=== PATIENT | male | born 1970 | race Hispanic/Latino ===

== ENCOUNTER 2016-11-19 22:52 | Emergency (ER) | payer SELFPAY ==
[2016-11-19] MEDS ORDERED: Albuterol Sulfate 1.25 MG/3 ML NEB ONE (23:10)
[2016-11-19 23:16] LABS: #Basophils 0.1 thou/uL (0.0-0.2); #Eosinphils 0.1 thou/uL (0.0-0.7); #Lymphocytes 2.9 thou/uL (1.20-3.40); #Monocytes 0.5 thou/uL (0.11-0.59); #Neutrophils 3.6 thou/uL (1.40-6.50); %Basophils 1.9 % (0.0-1.0); %Eosinophils 1.9 % (0.0-10.0); %Monocytes 6.3 % (0.0-10.0); Hematocrit 46.4 % (42.0-52.0); Red Blood Cell (RBC) Count 5.31 mill/uL (4.70-6.10); White Blood Cell (WBC) Count 7.2 thou/uL (4.8-10.8)
[2016-11-19 23:28] LABS: ALT (SGPT) 28 U/L (0-55); AST (SGOT) 19 U/L (5-34); Alkaline Phosphatase 110 U/L (40-150); Anion Gap 16 mmol/L (10-20); BUN (Urea Nitrogen) 19 mg/dL (8.9-20.6); Bilirubin, Total 0.9 mg/dL (0.2-1.2); Calc. Creatinine Clearance 0 mL/min (70-130); Carbon Dioxide 18 mmol/L (22-29); Chloride 111 mmol/L (98-107); Estimated GFR-MDRD Greater than 90; Globulin 3.5 g/dL (2.4-3.5); Protein, Total 7.9 g/dL (6.0-8.3)
[2016-11-19 23:29] LABS: Troponin I Less than 0.010 ng/mL (< 0.028)
[2016-11-19] MEDS ORDERED: Ketorolac Tromethamine 30 MG/ML VIAL ONE (23:45)
[2016-11-19] MEDS ORDERED: methylPREDNISolone Sod Succ/PF 125 MG/2 ML VIAL ONE (23:45)
[2016-11-19] MEDS ORDERED: cefTRIAXone\\ROCEPHIN 1 GM VIAL ONE (23:56)
--- NOTE | 2016-11-19 23:58 | RAD ---
PORTABLE CHEST 11/19/16 An AP portable film at 2303 is presented with no prior films available for comparison. The heart is normal in size. There is no vascular congestion, edema or pleural effusion. The right h emidiaphragm is slightly elevated but this could be the patient's normal state. I cannot rule out a little basilar atelectasis, but no major lobar consolidation was seen. IMPRESSION: No definite acute findings. POS: HOME
--- NOTE | 2016-11-20 00:55 | ERRECORD ---
[facility] EMERGENCY RECORD HPI SHORTNESS OF BREATH (FriNov 20, 2016 00:12 JPIP) CHIEF COMPLAINT: Patient presents for evaluation of shortness of breath, Patient presents for evaluation of cough, congestion and sore throat. HISTORIAN: History provided by patient, History provided by patient's spouse, History obtained with the assistance of a acid tester, SACHA Shook. LOCATION: throat is burning. QUALITY: Symptoms described as tightness, Symptoms described as wheezing. TIME COURSE: Sudden onset of symptoms, 3, days ago, Symptoms are worsening, this evening at approx. 1900 he started to wheeze., are constant. ASSOCIATED WITH: Associated with chills, Associated with cough, No associated diarrhea, Associated with fever, subjective, No associated palpitations, Associated with upper respiratory infection, No associated vomiting, Associated with wheezing. EXACERBATED BY: Patient's condition exacerbated by nothing. RELIEVED BY: Patient's condition relieved by nothing. ROS (FriNov 20, 2016 00:13 JPIP) CONSTITUTIONAL: Historian reports chills, reports fever. Subjective fever of felt feverish. ENT: Historian reports dysphagia, denies otalgia, denies otorrhea, reports rhinorrhea, reports sore throat. CARDIOVASCULAR: Historian denies chest pain. RESPIRATORY: Historian reports cough, reports shortness of breath, denies sputum, reports wheezing. GI: Historian denies nausea, denies vomiting. SKIN: Historian denies rash, denies skin changes, denies skin lesions. NEUROLOGIC: Historian denies lethargy, denies mental status changes. NOTES: All systems reviewed, negative except as described above. PAST MEDICAL HISTORY (23:07 MVIL) MEDICAL HISTORY: Notes: H/O HTN. NOT TAKING ANY MEDS. MALE SURGICAL HISTORY: Patient has no surgical history. PSYCHIATRIC HISTORY: Notes: NO PREVIOUS PSYCH HX. SOCIAL HISTORY: Patient denies alcohol use, Patient denies drug use, Patient is a former tobacco user, smoked cigarettes, Patient quit smoking less than 10 years ago, Tobacco history notes: 2 YRS AGO, Lives at home, with family, AND TEENAGE DAUGHTER. KNOWN ALLERGIES PENICILLIN: Reaction: Hives CURRENT MEDICATIONS No recorded medications &a-1R&a+25V*p+0X*[id number]*c152B*c15G*c2P*p-0X&a-25V&a+1RName: Timothy, Devin : M46 MedRec: [id number] AcctNum: [id number] Prepared: FriNov 20, 2016 00:46 by Interface Page [address] [facility] EMERGENCY RECORD VITAL SIGNS (22:55 MVIL) VITAL SIGNS: BP: 141/97, Pulse: 73, Resp: 19, Temp: 97.7 (Axillary), Pain: 0, O2 sat: 97 on 1L Oxygen, Time: 11/19/2016 22:55. PHYSICAL EXAM (FriNov 20, 2016 00:14 JPIP) CONSTITUTIONAL: Vital Signs Reviewed, Patient afebrile, Pulse normal, Blood pressure, hypertensive, Respiratory rate normal, Normal pulse oximetry, Patient appears, uncomfortable, Patient alert and oriented to person, place and time, Nursing notes reviewed. HEAD: Head exam included findings of head atraumatic, normocephalic. EYES: Eye exam included findings of eyelids normal to inspection, Conjunctiva normal, Sclera normal, no periorbital ecchymosis, no periorbital edema, no periorbital erythema. ENT: Pharynx, injected bilaterally, no swelling, symmetrical, Uvula exam normal, midline, no edema, Mouth exam normal, mucous membranes moist. NECK: Neck exam included findings of normal range of motion, Trachea midline, Thyroid normal, Cervical adenopathy, tender, swollen. RESPIRATORY CHEST: Respiratory exam included findings of no respiratory distress, Breath sounds not clear, No wheezing, No rales, No rhonchi, Breath sounds not absent, Breath sounds not diminished, + stridor, it appears to be volitional. CARDIOVASCULAR: Cardiovascular exam included findings of heart rate regular rate and rhythm, Heart sounds normal, no murmurs, no rub. UPPER EXTREMITY: Upper extremity exam included findings of inspection normal, Range of motion normal. NEURO: York coma scale 15, Neuro exam findings include patient oriented to person, place and time, no focal motor deficits. SKIN: Skin exam included findings of skin warm, dry, and normal in color. LYMPHATIC: Lymphatic exam included findings of cervical adenopathy. PSYCHIATRIC: Normal affect. EKG INTERPRETATION (23:37 JPIP) MONITOR STRIP: quality assurance monitor final strip interpreted by Emergency Department Physician, Monitor strip shows normal sinus rhythm, with no ectopics. 12 LEAD EKG INTERPRETATION: 12 lead EKG interpreted by Emergency Department Physician at time of study, 12 lead EKG shows normal sinus rhythm, Rate (beats per minute): 78, with no ectopics, Conduction normal, ST segments normal, T waves, nonspecific T wave changes, Jermyn normal, Clinical impression:, non-specific EKG. MEDICATION ADMINISTRATION SUMMARY &a-1R&a+25V*p+0X*[id number]*c152B*c15G*c2P*p-0X&a-25V&a+1RName: Devin Aguirre : M46 MedRec: [id number] AcctNum: [id number] Prepared: FriNov 20, 2016 00:46 by Interface Page [address] [facility] EMERGENCY RECORD Drug Name: Rocephin injection, Dose Ordered: 1 g, Route: IV Piggy Back, Status: Given, Time: 00:03 11/20/2016, Drug Name: Solu-MEDROL injection, Dose Ordered: 125 mg, Route: IV Push, Status: Given, Time: 23:51 11/19/2016, Drug Name: Toradol injection, Dose Ordered: 30 mg, Route: IV Push, Status: Given, Time: 23:50 11/19/2016, Drug Name: albuterol sulfate inhalation, Dose Ordered: 3 mL, Route: Nebulize, Status: Given, Time: 23:12 11/19/2016, Drug Name: DuoNeb, Dose Ordered: 3 mL, Route: Nebulize, Status: Given, Time: 23:00 11/19/2016, Detailed record available in Medication Service section. DOCTOR NOTES (FriNov 20, 2016 00:29 JPIP) RE-EVALUATION: Routine re-evaluation, after administration of bronchodilator nebulizer treatments, Routine re-evaluation, after administration of IV fluids, The patient's condition has improved, patient is feeling markedly better. TEXT: Discussed findings and treatment plan with patient and spouse with SACHA Shook. Questions answered, precautions given. PROBLEM LIST No recorded problems DIAGNOSIS (FriNov 20, 2016 00:31 JPIP) FINAL: PRIMARY: Acute bronchitis, ADDITIONAL: laryngeal spasm. PRESCRIPTION (FriNov 20, 2016 00:31 JPIP) cephALEXin: CAPSULE (HARD, SOFT, ETC.) : 500 mg : ORAL : Quantity: 1 Unit: tab(s) Route: ORAL Schedule: 3 times a day (after meals) Dispense: 30 May substitute. Refills: No Refills . NOTES: No refills. promethazine-DM: SYRUP : : ORAL : Quantity: 5 Unit: mL Route: ORAL Schedule: every 8 hours PRN Dispense: 120 ml May substitute. Refills: No Refills . NOTES: for cough No refills. DISPOSITION PATIENT: Disposition Type: Discharge, Disposition: *Discharge Home, Condition: Good. (FriNov 20, 2016 00:31 DONNY) Patient left the department. (FriNov 20, 2016 00:41 JENNIFFER) Roth: DONNY=DO Keenan Joseph MVIL=SACHA Hernandez, Bouchra &a-1R&a+25V*p+0X*[id number]*c152B*c15G*c2P*p-0X&a-25V&a+1RName: Devin Aguirre : M46 MedRec: [id number] AcctNum: [id number] Prepared: FriNov 20, 2016 00:46 by Interface Page 3 of 3 pMD MTDD
--- NOTE | 2016-11-20 01:04 | PICIS ---
[facility] EMERGENCY RECORD TRIAGE (FriNov 19, 2016 22:57 MVIL) TRIAGE NOTES: PATIENT STARTED WHEEZING TODAY AND HAS A COUGH X3 DAYS. DENIES ANY FEVER. (FriNov 19, 2016 22:57 MVIL) PATIENT: NAME: Devin Aguirre, AGE: 46, GENDER: male, : [facility] 1970, TIME OF GREET: FriNov 19, 2016 22:53, PREFERRED LANGUAGE: Kyrgyz, ETHNICITY: Not or , ECODE BILLING MAP: [facility], Zip Code: [address], KG WEIGHT: 99.79, HEIGHT/LENGTH: 180.34cm, BMI: 30.68, , , PERSON ID: [id number], PAYMENT: [employer] Self Pay, PCP: LUISA. (FriNov 19, 2016 22:57 MVIL) PHONE: . (23:22) COMPLAINT: DYSPNEA. (FriNov 19, 2016 22:57 MVIL) ADMISSION: URGENCY: 3 Urgent, ADMISSION SOURCE: Home, TRANSPORT: CAR, BED: ER -01. (FriNov 19, 2016 22:57 MVIL) ASSESSMENT: Assessment: C/O DIFFICULTY BREATHING TODAY. PATIENT HAD A RECENT COLD AND PERSISTENT COUGH X 3-4 DAYS ., Symptoms began 11/19/2016 23:05, Symptoms began 1 hour ago. (23:07 MVIL) PAIN: No complaint of pain. (23:07 MVIL) IMMUNIZATIONS: Flu vaccine not up to date, Tetanus not up to date, Pneumococcal vaccine not up to date. (23:07 MVIL) SIRS SCORING: Heart Rate 55-109 (0), Temp range 96.8-101.1 (0), respiratory rate 12-24 (0), Mental Status altered: no (0). (23:07 MVIL) PROVIDERS: TRIAGE NURSE: Bouchra Hernandez RN. (FriNov 19, 2016 22:57 MVIL) VITAL SIGNS: BP 141/97, Pulse 73, Resp 19, Temp 97.7, (Axillary), Pain 0, O2 Sat 97, on 1L Oxygen, Time 11/19/2016 22:55. (22:55 MVIL) KNOWN ALLERGIES PENICILLIN: Reaction: Hives CURRENT MEDICATIONS No recorded medications VITAL SIGNS (22:55 MVIL) VITAL SIGNS: BP: 141/97, Pulse: 73, Resp: 19, Temp: 97.7 (Axillary), Pain: 0, O2 sat: 97 on 1L Oxygen, Time: 11/19/2016 22:55. NURSING ASSESSMENT: RESPIRATORY /CHEST (FriNov 20, 2016 00:14 MVIL) CONSTITUTIONAL: Complex assessment performed, Patient arrives ambulatory, Gait steady, History obtained from patient, Patient appears comfortable, Patient cooperative, Patient alert, Oriented to person, place and time, Skin warm, Skin dry, Skin normal in color, Mucous membranes pink, Mucous membranes moist, Patient is well-groomed, Patient complains of WHEEZING, B/L WHEEZING NOTED UPON ARRIVAL TO ER AND IMMEDIATELY REQUESTED NEB TREATMENT. O2 SAT ON ROOM AIR UPON ER ARRIVAL WAS 89%. PAIN: pressure pain, Pain exacerbated by nothing, Nothing has been tried to alleviate the pain. RESPIRATORY/CHEST: Breath sounds clear, Respiratory assessment &a-1R&a+25V*p+0X*b0919Y*c152B*c15G*c2P*p-0X&a-25V&a+1RName: Devin Aguirre : M46 MedRec: [id number] AcctNum: [id number] Prepared: FriNov 20, 2016 00:53 by Interface Page 1 of 10 pMD [facility] EMERGENCY RECORD findings include respiratory effort easy, Respirations regular, Conversing normally, Neck and chest exam findings include trachea midline, Chest expansion equal, Chest movement symmetrical, Signs of distress, no associated fever. SAFETY: Side rails up, Cart/Stretcher in lowest position, Family at bedside, Call light within reach, Hospital ID band on. NURSING PROCEDURE: DISCHARGE NOTE (FriNov 20, 2016 00:33 MVIL) DISCHARGE: Patient discharged to home, ambulating without assistance, family driving, accompanied by //partner, Summary of Care printed/ provided, Patient requested and was provided an electronic copy of Discharge Instructions, Transition record given to patient, Discharge instructions given to patient, Prescriptions given and instructions on side effects given, Name of prescription(s) given: PROMETHAZINE AND CEPHALEXIN, Medication reconciliation form given, Above person(s) verbalized understanding of discharge instructions and follow-up care, Patient discharged by. BELONGINGS: Belongings and valuables with patient at time of admission include:. NURSING PROCEDURE: IV (23:05 SDIS) IV SITE 1: IV established, to the left antecubital, using an 18 gauge catheter, in one attempt, IV site prepped with CHLOROPREP, Saline lock established, Labs drawn at time of placement, labeled in the presence of the patient and sent to lab. SAFETY: Side rails up, Cart/Stretcher in lowest position, Call light within reach, Hospital ID band on. ORDER DETAILS Order Name: B type Natriuretic Peptide, Status: Active, Time: 22:59 11/19/2016, User: DONNY, - Ordered for: DO Keenan Joseph, - Entered by: DO Keenan Joseph - Tue Nov 19, 2016 22:59, - Quantity: 1, Order Name: PROCESSING INSPECTOR ED, Status: Done, Time: 23:07 11/19/2016, User: JENNIFFER, - Ordered for: DO Keenan Joseph, - Entered by: DO Keenan Joseph - Tue Nov 19, 2016 22:59, - Quantity: 1, Order Name: Cardiac Profile w/CKMB & Troponin - I, Status: Active, Time: 22:59 11/19/2016, User: DONNY, - Ordered for: DO Keenan Joseph, - Entered by: DO Keenan Joseph - Tue Nov 19, 2016 22:59, - Quantity: 1, Order Name: CBC with Differential, Status: Active, Time: 22:59 11/19/2016, User: DONNY, - Ordered for: DO Keenan Joseph, - Entered by: DO Keenan Joseph - Tue Nov 19, 2016 22:59, - Quantity: 1, Order Name: Comprehensive Metabolic Panel, Status: Active, Time: &a-1R&a+25V*p+0X*o0758P*c152B*c15G*c2P*p-0X&a-25V&a+1RName: Devin Aguirre : M46 MedRec: [id number] AcctNum: [id number] Prepared: FriNov 20, 2016 00:53 by Interface Page 2 of 10 pMD [facility] EMERGENCY RECORD 22:59 11/19/2016, User: DONNY, - Ordered for: DO Keenan Joseph, - Entered by: DO Keenan Joseph - rupert Nov 19, 2016 22:59, - Quantity: 1, Order Name: EKG 12 Lead in Emergency Room, Status: Active, Time: 23:21 11/19/2016, User: DONNY, - Ordered for: DO Keenan Joseph, - Entered by: DO Keenan Joseph - rupert Nov 19, 2016 23:21, - Quantity: 1, Order Name: ERRT * Smal Vol Neb Initial Trmt, Status: Active, Time: 22:59 11/19/2016, User: DONNY, - Ordered for: DO Keenan Joseph, - Entered by: DO Keenan Joseph - Tue Nov 19, 2016 22:59, - Quantity: 1, Order Name: ERRT Small Vol Neb Sub Trmt, Status: Active, Time: 23:04 11/19/2016, User: DONNY, - Ordered for: DO Keenan Joseph, - Entered by: DO Keenan Joseph - FriNov 19, 2016 23:04, - Quantity: 1, Order Name: ERRT Pulse Oximeter ER, Status: Active, Time: 22:59 11/19/2016, User: DONNY, - Ordered for: DO Keenan Joseph, - Entered by: DO Keenan Joseph - FriNov 19, 2016 22:59, - Quantity: 1, Order Name: Influenza A&B Ag Screen, Status: Active, Time: 22:59 11/19/2016, User: DONNY, - Ordered for: DO Keenan Joseph, - Entered by: DO Keenan Joseph - FriNov 19, 2016 22:59, - Quantity: 1, Order Name: SALINE LOCK, Status: Done, Time: 23:07 11/19/2016, User: MVIL, - Ordered for: DO Keenan Joseph, - Entered by: DO Keenan Joseph - rupert Nov 19, 2016 22:59, - Quantity: 1, Order Name: XR Chest 1 View Portable, Status: Active, Time: 22:59 11/19/2016, User: DONNY, - Ordered for: DO Keenan Joseph, - Entered by: DO Keenan Joseph - Tue Nov 19, 2016 22:59, - Quantity: 1. MEDICATION ADMINISTRATION SUMMARY Drug Name: Rocephin injection, Dose Ordered: 1 g, Route: IV Piggy Back, Status: Given, Time: 00:03 11/20/2016, Drug Name: Solu-MEDROL injection, Dose Ordered: 125 mg, Route: IV Push, Status: Given, Time: 23:51 11/19/2016, Drug Name: Toradol injection, Dose Ordered: 30 mg, Route: IV Push, Status: Given, Time: 23:50 11/19/2016, Drug Name: albuterol sulfate inhalation, Dose Ordered: 3 mL, Route: Nebulize, Status: Given, Time: 23:12 11/19/2016, Drug Name: DuoNeb, Dose Ordered: 3 mL, Route: Nebulize, Status: &a-1R&a+25V*p+0X*p8083E*c152B*c15G*c2P*p-0X&a-25V&a+1RName: Devin Aguirre : M46 MedRec: [id number] AcctNum: [id number] Prepared: FriNov 20, 2016 00:53 by Interface Page 3 of 10 pMD [facility] EMERGENCY RECORD Given, Time: 23:00 11/19/2016, Detailed record available in Medication Service section. MEDICATION SERVICE albuterol sulfate inhalation: Order: albuterol sulfate inhalation (albuterol sulfate) - Dose: 3 mL : Nebulize Schedule: Now Ordered by: Beau Keenan DO Entered by: Beau Keenan DO FriNov 19, 2016 23:03 Documented as given by: Bouchra Hernandez RN FriNov 19, 2016 23:12 Patient, Medication, Dose, Route and Time verified prior to administration. Verbal order read back and verified, Amount given: 3MLS, Correct patient, time, route, dose and medication confirmed prior to administration, Patient advised of actions and side-effects prior to administration, Allergies confirmed and medications reviewed prior to administration, Patient in position of comfort, Side rails up, Cart in lowest position, Family at bedside. DuoNeb: Order: DuoNeb (ipratropium bromide/albuterol sulfate) - Dose: 3 mL : Nebulize Schedule: Now Ordered by: Beau Keenan DO Entered by: Beau Keenan DO FriNov 19, 2016 23:03 Documented as given by: Bouchra Hernandez RN FriNov 19, 2016 23:00 Patient, Medication, Dose, Route and Time verified prior to administration. Amount given: 3MLS, Correct patient, time, route, dose and medication confirmed prior to administration, Patient advised of actions and side-effects prior to administration, Allergies confirmed and medications reviewed prior to administration, Patient in position of comfort, Side rails up, Cart in lowest position, Family at bedside. Rocephin injection: Order: Rocephin injection (ceftriaxone sodium) - Dose: 1 g : IV Piggy Back Schedule: Now Ordered by: Beau Keenan DO Entered by: Beau Keenan DO FriNov 19, 2016 23:53 Documented as given by: Bouchra Hernandez RN FriNov 20, 2016 00:03 Patient, Medication, Dose, Route and Time verified prior to administration. Amount given: 1G, IV SITE #1 IV fluids established for hydration, via primary tubing, IV SITE #1 on IV pump, Catheter placement confirmed via flush prior to administration, IV site without signs or symptoms of infiltration during medication administration, No swelling during administration, No drainage during administration, IV flushed after administration, Correct patient, time, route, dose and medication confirmed prior to administration, Patient advised of actions and side-effects prior to administration, Allergies confirmed &a-1R&a+25V*p+0X*h0960V*c152B*c15G*c2P*p-0X&a-25V&a+1RName: Devin Aguirre : M46 MedRec: [id number] AcctNum: [id number] Prepared: FriNov 20, 2016 00:53 by Interface Page 4 of 10 pMD [facility] EMERGENCY RECORD and medications reviewed prior to administration, Patient in position of comfort, Side rails up, Cart in lowest position, Family at bedside. : Follow Up : Response assessment performed, No signs or symptoms of allergic reaction noted, Decreased symptoms, 4, 5, 6, The GCS total is 15, Breath sounds improved, _IV SITE #1:_, Medication infusion discontinued, on FriNov 20, 2016 00:36, 35 minutes, ., Total amount infused: 1GM, IV Discontinued with catheter intact. (FriNov 20, 2016 00:35 MVIL) Solu-MEDROL injection: Order: Solu-MEDROL injection (methylprednisolone sod succ) - Dose: 125 mg : IV Push Ordered by: Beau Keenan DO Entered by: Beau Keenan DO FriNov 19, 2016 23:40 Documented as given by: Bouchra Hernandez RN FriNov 19, 2016 23:51 Patient, Medication, Dose, Route and Time verified prior to administration. Amount given: 125MG, IV SITE #1 IVP, initial medication, Catheter placement confirmed via flush prior to administration, IV site without signs or symptoms of infiltration during medication administration, No swelling during administration, No drainage during administration, IV flushed after administration, Correct patient, time, route, dose and medication confirmed prior to administration, Patient advised of actions and side-effects prior to administration, Allergies confirmed and medications reviewed prior to administration, Patient in position of comfort, Side rails up, Cart in lowest position, Family at bedside. Toradol injection: Order: Toradol injection (ketorolac tromethamine) - Dose: 30 mg : IV Push Schedule: Now Ordered by: Beau Keenan DO Entered by: Beau Keenan DO FriNov 19, 2016 23:40 Documented as given by: Bouchra Hernandez RN FriNov 19, 2016 23:50 Patient, Medication, Dose, Route and Time verified prior to administration. Amount given: 30MG, IV SITE #1 IVP, initial medication, Catheter placement confirmed via flush prior to administration, IV site without signs or symptoms of infiltration during medication administration, No swelling during administration, No drainage during administration, IV flushed after administration, Correct patient, time, route, dose and medication confirmed prior to administration, Patient advised of actions and side-effects prior to administration, Allergies confirmed and medications reviewed prior to administration, Patient in position of comfort, Side rails up, Cart in lowest position, Family at bedside. HPI SHORTNESS OF BREATH (FriNov 20, 2016 00:12 JPIP) CHIEF COMPLAINT: Patient presents for evaluation of shortness of breath, Patient presents for evaluation of &a-1R&a+25V*p+0X*l7095J*c152B*c15G*c2P*p-0X&a-25V&a+1RName: Devin Aguirre : M46 MedRec: [id number] AcctNum: [id number] Prepared: FriNov 20, 2016 00:53 by Interface Page 5 of 10 pMD [facility] EMERGENCY RECORD cough, congestion and sore throat. HISTORIAN: History provided by patient, History provided by patient's spouse, History obtained with the assistance of a environmental lawyer, SACHA Shook. LOCATION: throat is burning. QUALITY: Symptoms described as tightness, Symptoms described as wheezing. TIME COURSE: Sudden onset of symptoms, 3, days ago, Symptoms are worsening, this evening at approx. 1900 he started to wheeze., are constant. ASSOCIATED WITH: Associated with chills, Associated with cough, No associated diarrhea, Associated with fever, subjective, No associated palpitations, Associated with upper respiratory infection, No associated vomiting, Associated with wheezing. EXACERBATED BY: Patient's condition exacerbated by nothing. RELIEVED BY: Patient's condition relieved by nothing. ROS (FriNov 20, 2016 00:13 JPIP) CONSTITUTIONAL: Historian reports chills, reports fever. Subjective fever of felt feverish. ENT: Historian reports dysphagia, denies otalgia, denies otorrhea, reports rhinorrhea, reports sore throat. CARDIOVASCULAR: Historian denies chest pain. RESPIRATORY: Historian reports cough, reports shortness of breath, denies sputum, reports wheezing. GI: Historian denies nausea, denies vomiting. SKIN: Historian denies rash, denies skin changes, denies skin lesions. NEUROLOGIC: Historian denies lethargy, denies mental status changes. NOTES: All systems reviewed, negative except as described above. PAST MEDICAL HISTORY (23:07 MVIL) MEDICAL HISTORY: Notes: H/O HTN. NOT TAKING ANY MEDS. MALE SURGICAL HISTORY: Patient has no surgical history. PSYCHIATRIC HISTORY: Notes: NO PREVIOUS PSYCH HX. SOCIAL HISTORY: Patient denies alcohol use, Patient denies drug use, Patient is a former tobacco user, smoked cigarettes, Patient quit smoking less than 10 years ago, Tobacco history notes: 2 YRS AGO, Lives at home, with family, AND TEENAGE DAUGHTER. PHYSICAL EXAM (FriNov 20, 2016 00:14 JPIP) CONSTITUTIONAL: Vital Signs Reviewed, Patient afebrile, Pulse normal, Blood pressure, hypertensive, Respiratory rate normal, Normal pulse oximetry, Patient appears, uncomfortable, Patient alert and oriented to person, place and time, Nursing notes reviewed. HEAD: Head exam included findings of head atraumatic, normocephalic. &a-1R&a+25V*p+0X*w4373B*c152B*c15G*c2P*p-0X&a-25V&a+1RName: Devin Aguirre : M46 MedRec: [id number] AcctNum: [id number] Prepared: FriNov 20, 2016 00:53 by Interface Page 6 of 10 pMD [facility] EMERGENCY RECORD EYES: Eye exam included findings of eyelids normal to inspection, Conjunctiva normal, Sclera normal, no periorbital ecchymosis, no periorbital edema, no periorbital erythema. ENT: Pharynx, injected bilaterally, no swelling, symmetrical, Uvula exam normal, midline, no edema, Mouth exam normal, mucous membranes moist. NECK: Neck exam included findings of normal range of motion, Trachea midline, Thyroid normal, Cervical adenopathy, tender, swollen. RESPIRATORY CHEST: Respiratory exam included findings of no respiratory distress, Breath sounds not clear, No wheezing, No rales, No rhonchi, Breath sounds not absent, Breath sounds not diminished, + stridor, it appears to be volitional. CARDIOVASCULAR: Cardiovascular exam included findings of heart rate regular rate and rhythm, Heart sounds normal, no murmurs, no rub. UPPER EXTREMITY: Upper extremity exam included findings of inspection normal, Range of motion normal. NEURO: Guy coma scale 15, Neuro exam findings include patient oriented to person, place and time, no focal motor deficits. SKIN: Skin exam included findings of skin warm, dry, and normal in color. LYMPHATIC: Lymphatic exam included findings of cervical adenopathy. PSYCHIATRIC: Normal affect. LAB INTERPRETATION (FriNov 20, 2016 00:18 JPIP) INTERPRETATION: I reviewed the lab results, All labs normal except as noted below, CBC normal, Chemistry abnormal, Chloride elevated, Glucose elevated, Bicarbonate decreased, Cardiac enzymes normal, Liver functions normal, Influenza negative. EVENTS TRANSFER: Triage to Emergency Emergency Room -01. (FriNov 19, 2016 22:57 MVIL) Removed from Emergency Emergency Room -01. (FriNov 20, 2016 00:41 MVIL) EKG INTERPRETATION (23:37 JPIP) MONITOR STRIP: television equipment operator strip interpreted by Emergency Department Physician, Monitor strip shows normal sinus rhythm, with no ectopics. 12 LEAD EKG INTERPRETATION: 12 lead EKG interpreted by Emergency Department Physician at time of study, 12 lead EKG shows normal sinus rhythm, Rate (beats per minute): 78, with no ectopics, Conduction normal, ST segments normal, T waves, nonspecific T wave changes, [place] normal, Clinical impression:, non-specific EKG. O2SAT INTERPRETATION (FriNov 20, 2016 00:16 JPIP) O2SAT: Continuous pulse oximetry, Oxygen saturation 94%, on room &a-1R&a+25V*p+0X*b1368I*c152B*c15G*c2P*p-0X&a-25V&a+1RName: Devin Aguirre : M46 MedRec: [id number] AcctNum: [id number] Prepared: FriNov 20, 2016 00:53 by Interface Page 7 of 10 pMD [facility] EMERGENCY RECORD air, Oxygen saturation interpretation: Normal, No intervention required, Intervention required: patient observed. DOCTOR NOTES (FriNov 20, 2016 00:29 JPIP) RE-EVALUATION: Routine re-evaluation, after administration of bronchodilator nebulizer treatments, Routine re-evaluation, after administration of IV fluids, The patient's condition has improved, patient is feeling markedly better. TEXT: Discussed findings and treatment plan with patient and spouse with SACHA Shook. Questions answered, precautions given. PROBLEM LIST No recorded problems DIAGNOSIS (FriNov 20, 2016 00:31 JPIP) FINAL: PRIMARY: Acute bronchitis, ADDITIONAL: laryngeal spasm. DISPOSITION PATIENT: Disposition Type: Discharge, Disposition: *Discharge Home, Condition: Good. (FriNov 20, 2016 00:31 JPIP) Patient left the department. (FriNov 20, 2016 00:41 MVIL) INSTRUCTION (FriNov 20, 2016 00:31 JPIP) DISCHARGE: BRONCHITIS, ABX TX (ADULT). SPECIAL: Finish all your antibiotics Follow up with Primary Care Physician within 72 hours Return to the Emergency Department for increased symptoms problems or concerns Take acetaminophen or ibuprofen for pain. PRESCRIPTION (FriNov 20, 2016 00:31 JPIP) cephALEXin: CAPSULE (HARD, SOFT, ETC.) : 500 mg : ORAL : Quantity: 1 Unit: tab(s) Route: ORAL Schedule: 3 times a day (after meals) Dispense: 30 May substitute. Refills: No Refills . NOTES: No refills. promethazine-DM: SYRUP : : ORAL : Quantity: 5 Unit: mL Route: ORAL Schedule: every 8 hours PRN Dispense: 120 ml May substitute. Refills: No Refills . NOTES: for cough No refills. IMAGING *EKG: Image captured from scanner. (23:37 MVIL) *SUPPLY CHARGE SHEET: Image captured from scanner. (FriNov 20, 2016 00:32 MVIL) *DISCHARGE INSTRUCTIONS RECEIPT: Image captured from scanner. (FriNov 20, 2016 00:39 MVIL) &a-1R&a+25V*p+0X*p6130N*c152B*c15G*c2P*p-0X&a-25V&a+1RName: Devin Aguirre : M46 MedRec: [id number] AcctNum: [id number] Prepared: FriNov 20, 2016 00:53 by Interface Page 8 of 10 pMD [facility] EMERGENCY RECORD RESULTS LABORATORY: CBC with Differential Collection DT: FriNov 19, 2016 23:08, White Blood Cell (WBC) Count 7.2 thou/uL, Range (4.8-10.8), Red Blood Cell (RBC) Count 5.31 mill/uL, Range (4.70-6.10), Hemoglobin 15.8 g/dL, Range (14.0-18.0), Hematocrit 46.4 %, Range (42.0-52.0), Mean Corpuscular Volume 87.4 fl, Range (80.0-94.0), Mean Corpuscular Hemoglobin 29.8 pg, Range (27.0-31.0), Mean Corpuscular HGB CONC 34.1 g/dL, Range (32.0-36.0), *RBC Distribution Width 11.0 - L %, Range (11.5-14.5), Platelet Count 154 thou/uL, Range (130-400), *Mean Platelet Volume 12.0 - H fL, Range (7.4-10.4), %Neutrophils 49.2 %, Range (42.0-75.0), %Lymphocytes 40.7 %, Range (21.0-51.0), %Monocytes 6.3 %, Range (0.0-10.0), %Eosinophils 1.9 %, Range (0.0-10.0), *%Basophils 1.9 - H %, Range (0.0-1.0), #Neutrophils 3.6 thou/uL, Range (1.40-6.50), #Lymphocytes 2.9 thou/uL, Range (1.20-3.40), #Monocytes 0.5 thou/uL, Range (0.11-0.59), #Eosinphils 0.1 thou/uL, Range (0.0-0.7), #Basophils 0.1 thou/uL, Range (0.0-0.2). (23:21 [facility]) Comprehensive Metabolic Panel Collection DT: FriNov 19, 2016 23:08, Sodium 141 mmol/L, Range (136-145), Potassium 3.5 mmol/L, Range (3.5-5.1), *Chloride 111 - H mmol/L, Range (98-107), *Carbon Dioxide 18 - L mmol/L, Range (22-29), Anion Gap 16 mmol/L, Range (10-20), BUN (Urea Nitrogen) 19 mg/dL, Range (8.9-20.6), Creatinine 0.91 mg/dL, Range (0.7-1.3), Estimated GFR-MDRD Greater than 90 , Reference Range for Estimated GFR: Greater than 90, mL/min/1.73 m2 NOTE: The MDRD equation has not been validated for use, with the elderly (over 70 years of age), women, patients with, serious comorbid condition or persons with extremes of body size, muscle, mass, or nutritional status. , *Glucose 149 - H mg/dL, Range (70-105), Calcium 9.0 mg/dL, Range (7.8-10.44), Bilirubin, Total 0.9 mg/dL, Range (0.2-1.2), Protein, Total 7.9 g/dL, Range (6.0-8.3), NOTE: Plasma values are generally 0.3 to 0.5 g/dL higher than serum values, due to the presence of fibrinogen. , Albumin 4.4 g/dL, Range (3.5-5.0), Globulin 3.5 g/dL, Range (2.4-3.5), Alb/Glob Ratio 1.3 g/dL, Range (1.2-2.2), Alkaline Phosphatase 110 U/L, Range (40-150), AST (SGOT) 19 U/L, Range (5-34), &a-1R&a+25V*p+0X*d7993G*c152B*c15G*c2P*p-0X&a-25V&a+1RName: Devin Aguirre : M46 MedRec: [id number] AcctNum: [id number] Prepared: FriNov 20, 2016 00:53 by Interface Page 9 of 10 pMD [facility] EMERGENCY RECORD ALT (SGPT) 28 U/L, Range (0-55). (23:34 JPIP) Cardiac Profile w/CKMB & TropI Collection DT: FriNov 19, 2016 23:08, CKMB 1.8 ng/mL, Range (0-6.6), Troponin I Less than 0.010 ng/mL, Range (< 0.028), Reference Range , 0.00 - 0.028 ng/mL Negative 0.029 - 0.29 ng/mL , Indeterminate Greater or Equal to 0.3 ng/mL Strongly suggests IN , . (23:34 JPIP) CBC with Differential Collection DT: FriNov 19, 2016 23:08, White Blood Cell (WBC) Count 7.2 thou/uL, Range (4.8-10.8), Red Blood Cell (RBC) Count 5.31 mill/uL, Range (4.70-6.10), Hemoglobin 15.8 g/dL, Range (14.0-18.0), Hematocrit 46.4 %, Range (42.0-52.0), Mean Corpuscular Volume 87.4 fl, Range (80.0-94.0), Mean Corpuscular Hemoglobin 29.8 pg, Range (27.0-31.0), Mean Corpuscular HGB CONC 34.1 g/dL, Range (32.0-36.0), *RBC Distribution Width 11.0 - L %, Range (11.5-14.5), Platelet Count 154 thou/uL, Range (130-400), *Mean Platelet Volume 12.0 - H fL, Range (7.4-10.4), %Neutrophils 49.2 %, Range (42.0-75.0), %Lymphocytes 40.7 %, Range (21.0-51.0), %Monocytes 6.3 %, Range (0.0-10.0), %Eosinophils 1.9 %, Range (0.0-10.0), *%Basophils 1.9 - H %, Range (0.0-1.0), #Neutrophils 3.6 thou/uL, Range (1.40-6.50), #Lymphocytes 2.9 thou/uL, Range (1.20-3.40), #Monocytes 0.5 thou/uL, Range (0.11-0.59), #Eosinphils 0.1 thou/uL, Range (0.0-0.7), #Basophils 0.1 thou/uL, Range (0.0-0.2), PLT Morphology Comment Appears Adequate . (23:34 [facility]) B type Natriuretic Peptide Collection DT: FriNov 19, 2016 23:09, B type Natriuretic Peptide Less than 10.0 pg/mL, Range (0-100). (23:52 JPIP) Roth: DONNY=DO Keenan Joseph MVIL=SACHA Hernandez, Bouchra ROEIS=SACHA Farrell, Clotilde &a-1R&a+25V*p+0X*p2060K*c152B*c15G*c2P*p-0X&a-25V&a+1RName: Devin Aguirre : [id number] MedRec: [id number] AcctNum: [id number] Prepared: Humza Nov 20, 2016 00:53 by Interface Page 10 of 10 pMD MTDD
== END 2016-11-20 03:05 | disposition home or self-care (01) ==
LOC: BURERS 22:52
DX: J20.9 Acute bronchitis, unspecified (principal); J38.5 Laryngeal spasm; Z87.891 Personal history of nicotine dependence
CPT/HCPCS: 71010; 80053; 82553; 83880; 84484; 85025; 93005; 94640; 94760; 96365; 96375; J0696; J1885; J2930

== ENCOUNTER 2019-11-04 14:54 | Emergency (ER) | payer OTHER, SELFPAY ==
--- NOTE | 2019-11-04 17:54 | RAD ---
RIGHT SHOULDER THREE VIEWS: 11/04/19 No fracture, dislocation, or AC joint widening was seen. The visible adjacent ribs appear intact. IMPRESSION: No significant finding. POS: HOME
== END 2019-11-04 15:52 | disposition home or self-care (01) ==
LOC: BURERS 14:54
DX: S43.401A Unspecified sprain of right shoulder joint, initial encounter (principal); I10 Essential (primary) hypertension; Z87.891 Personal history of nicotine dependence; W55.19XA Other contact with horse, initial encounter

== ENCOUNTER 2024-10-16 10:21 | Emergency (ER) | payer OTHER, SELFPAY ==
[2024-10-16] MEDS ORDERED: cefTRIAXone (ROCEPHIN) 1 GM VIAL ONE (10:41)
== END 2024-10-16 11:05 | disposition home or self-care (01) ==
LOC: BURERS 10:21
DX: S61.211A Laceration without foreign body of left index finger without damage to nail, initial encounter (principal); I10 Essential (primary) hypertension; W26.0XXA Contact with knife, initial encounter; Y93.89 Activity, other specified; Z87.891 Personal history of nicotine dependence; Z75.8 Other problems related to medical facilities and other health care
CPT/HCPCS: 96372; 99283; J0696